=== PATIENT | male | born 1980 | race Asian ===

== ENCOUNTER 2023-08-12 00:18 | Emergency (ER) | payer OTHER ==
[~2023-08-12] VITALS: Ht 172.7 cm; Wt 72.6 kg
[2023-08-12 00:18] VITALS: BP 125/89; PULSE 85; RESP 17; TEMP 98; O2SAT 97
[2023-08-12] MEDS: KETOROLAC 30 MG/ML VIAL IVP ONE (01:05)
[2023-08-12] MEDS: NACL 0.9% 1,000 ML IV ONE (01:06)
[2023-08-12 01:20] LABS: ANION GAP 14.1 (8-16); CARBON DIOXIDE 23.3 mmol/L (21-32); POTASSIUM 3.4 mmol/L (3.5-5.1)
[2023-08-12 01:30] LABS: ALBUMIN 4.2 g/dL (3.4-5.0); BILIRUBIN,DIRECT 0.1 mg/dL (0.0-0.3); TOTAL BILIRUBIN 0.7 mg/dL (0.0-1.0); TOTAL PROTEIN, SERUM 8.7 g/dL (6.4-8.2)
[2023-08-12 02:16] LABS: HEMATOCRIT 44.5 % (36-52); HEMOGLOBIN 14.7 g/dL (12.0-18.0); MEAN CORPUSCULAR HEMOGLOBIN 28 pg (27-31); MEAN CORPUSCULAR HGB CONC 33 g/dL (33-37); MEAN CORPUSCULAR VOLUME 85.9 fL (80-94); PLATELET COUNT (AUTO) 306 K/uL (140-450); RED BLOOD CELL COUNT(AUTO) 5.18 MIL/uL (4.20-6.10); RED CELL DISTRIBUTION WIDTH 13.8 % (11.6-13.7); WHITE BLOOD COUNT (AUTO) 17.4 K/uL (4.8-10.8)
[2023-08-12] MEDS ORDERED: CEFEPIME 2,000 MG VIAL IV ONE (02:46)
[2023-08-12] MEDS: CEFEPIME 2,000 MG in DEXTROSE 5% 100 ML IV ONE (02:50)
[2023-08-12 02:51] LABS: BILIRUBIN,URINE NEGATIVE (NEGATIVE); BLOOD, URINE NEGATIVE (NEGATIVE); LEUKOCYTE ESTERASE ,URINE NEGATIVE (NEGATIVE); NITRITE, URINE NEGATIVE (NEGATIVE); PH,URINE 7.5 (5.0-9.0); PROTEIN,URINE NEGATIVE (NEGATIVE); UGLUCOSE NEGATIVE (NEGATIVE); UROBILINOGEN,URINE 0.2 EU/dL (0.2 - 1)
[2023-08-12 02:55] LABS: LACTIC ACID 2.9 mmol/L (0.4-2.0)
[2023-08-12 02:57] LABS: APPEARANCE,URINE CLEAR (CLEAR); COLOR,URINE YELLOW (YELLOW)
[2023-08-12] MEDS ORDERED: OMEP20EC11 PO (03:09)
[2023-08-12] MEDS: NACL 0.9% 2,000 ML IV ONE (03:20)
[2023-08-12 03:37] LABS: LYMPHOCYTES % (MANUAL) 5 % (20-46)
[2023-08-12 03:38] LABS: MONOCYTES % (MANUAL) 6 % (5-12)
[2023-08-12 03:39] LABS: POIKILOCYTOSIS 1+
[2023-08-12 03:40] LABS: STOMATOCYTES 2+
[2023-08-12] MEDS: MORPHINE SULFATE 4 MG/ML SYR IVP ONE (05:35)
[2023-08-12 07:30] VITALS: BP 132/80; PULSE 82; RESP 20; TEMP 97.6; O2SAT 98
== END 2023-08-12 07:30 | disposition short-term general hospital (02) ==
LOC: MED 00:18
DX: R10.33 Periumbilical pain (principal); R19.7 Diarrhea, unspecified; R11.10 Vomiting, unspecified; K21.9 Gastro-esophageal reflux disease without esophagitis; Z79.899 Other long term (current) drug therapy
CPT/HCPCS: 36415; 74176; 80048; 80076; 81003; 83605; 83690; 85025; 87040; 96361; 96365; 96375; 99285; J0692; J1885; J2270; J7030